=== PATIENT | female | born 1960 | race Two or more races ===

== ENCOUNTER → 2020-06-30 | Outpatient (CLI) | payer OTHER | END | disposition home or self-care (01) | LOC: OFIC 805 15:00 | PROVIDERS: ATTEND Otolaryngology Otology & Neurotology | DX: H93.3X9 Disorders of unspecified acoustic nerve (principal); H90.3 Sensorineural hearing loss, bilateral ==

== ENCOUNTER → 2020-07-28 | Outpatient (CLI) | payer OTHER | END | disposition home or self-care (01) | LOC: OFIC 805 08:51 | PROVIDERS: ATTEND Otolaryngology Otology & Neurotology | DX: H90.3 Sensorineural hearing loss, bilateral (principal); H93.3X3 Disorders of bilateral acoustic nerves ==

== ENCOUNTER 2020-12-25 13:28 | Outpatient (CLI) | payer OTHER | END 2020-12-25 15:32 | disposition home or self-care (01) | LOC: OFIC 805 13:28 | PROVIDERS: ATTEND Otolaryngology Otology & Neurotology | DX: H90.3 Sensorineural hearing loss, bilateral (principal); H93.3X3 Disorders of bilateral acoustic nerves ==

== ENCOUNTER 2021-03-26 13:04 | Outpatient (CLI) | payer OTHER | END 2021-03-26 14:00 | disposition home or self-care (01) | LOC: OFIC 805 13:04 | PROVIDERS: ATTEND Otolaryngology Otology & Neurotology | DX: H90.3 Sensorineural hearing loss, bilateral (principal); H93.8X3 Other specified disorders of ear, bilateral ==